=== PATIENT | male | born 1990 | race Caucasian/White ===

== ENCOUNTER 2018-04-05 20:17 | Emergency (ER) | payer MEDICAID ==
[~2018-04-05] VITALS: Ht 188 cm; Wt 96.4 kg
[2018-04-05] MEDS ORDERED: KETOROLAC TROMETHAMINE 60 MG/2 ML VIAL IM ONE (22:00)
[2018-04-05 22:43] VITALS: BP 148/98
== END 2018-04-05 22:44 | disposition home or self-care (01) ==
LOC: EMS 20:20
DX: M54.5 Low back pain (principal)
CPT/HCPCS: 96372; 99283; J1885